=== PATIENT | male | born 1975 | race Two or more races ===

== ENCOUNTER 2018-02-06 10:56 | Emergency (ER) | payer SELFPAY | END 2018-02-06 13:03 | disposition left against medical advice (07) | LOC: ED 12:51 | DX: R06.00 Dyspnea, unspecified (principal) ==

== ENCOUNTER 2018-02-16 18:38 | Emergency (ER) | payer SELFPAY ==
[~2018-02-16] VITALS: Ht 185.4 cm; Wt 86.0 kg
[2018-02-16 18:49] VITALS: BP 158/82
== END 2018-02-16 19:53 | disposition home or self-care (01) ==
LOC: ED 19:47
DX: F15.10 Other stimulant abuse, uncomplicated (principal); F19.10 Other psychoactive substance abuse, uncomplicated; F17.200 Nicotine dependence, unspecified, uncomplicated; R20.2 Paresthesia of skin; Z72.9 Problem related to lifestyle, unspecified; Z91.14 Patient's other noncompliance with medication regimen
CPT/HCPCS: 99283

== ENCOUNTER 2018-02-27 04:27 | Emergency (ER) | payer SELFPAY ==
[~2018-02-27] VITALS: Ht 182.9 cm; Wt 86.7 kg
[2018-02-27 04:29] VITALS: BP 115/82
[2018-02-27] MEDS ORDERED: LIDOCAINE-MPF 1%, 5ML INFIL ONE (05:00)
[2018-02-27] MEDS ORDERED: LIDOCAINE-MPF 1%, 2ML ONE (05:08)
== END 2018-02-27 05:16 | disposition left against medical advice (07) ==
LOC: ED 05:10
DX: L02.414 Cutaneous abscess of left upper limb (principal); F15.10 Other stimulant abuse, uncomplicated; F11.10 Opioid abuse, uncomplicated; F17.200 Nicotine dependence, unspecified, uncomplicated
CPT/HCPCS: 99281

== ENCOUNTER 2019-08-18 05:27 | Inpatient (IN) | payer MEDICAID, MEDICARE ==
[~2019-08-18] VITALS: Ht 188 cm; Wt 106.7 kg
[2019-08-18] MEDS ORDERED: SODIUM CHLORIDE 0.9% 1,000ML IVBOLUS ONE ×3 (05:30→10:30)
[2019-08-18] MEDS ORDERED: SODIUM CHLORIDE FLUSH 10ML SYR IVF ONE (05:30)
--- NOTE | 2019-08-18 05:37 | NUR ---
ALEX ZARAGOZA FROM HOME FOR C/O POSSIBLE OD; PT. DENIES TAKING ANY MEDICAIONS. PER EMS REPORT PT. WENT TO [facility] TO REQUEST HELP AND [employer] PT. IN THE SHOWER WITH ALL CLOTING ON AND CALLED EMS. ALL WET CLOTHING REMOVED ON ARRIVAL. [facility] STATES RA SAT WAS 50% ON RA ON THEIR ARRIVAL. 2MG NARCAN BY EMS EN ROUTE. PT. REPORTS HX OF TBI. PT. A&O X 4. DENIES ANY PAIN OR DISCOMFORT. ON ARRIVAL TO ED PT. SPEAKING NON-STOP WITH NO RESP DISTRESS NOTED. HOWEVER; PT. IS ON 15L NON-REBREATHER. ATTEMPTED TO DECREASE O2 TO [place] IMMEDIATE DECREASE TO 84% WITH 6L NC. NON-REBREATHER REPLACED. EKG DONE ON ARRIVAL. ALL MONITORS PLACED. DR. MENESES WAS IN TO EVAL PT. AND DISCUSS POC. 2ND IV ESTABLISHED.
--- NOTE | 2019-08-18 05:49 | NUR ---
O2 CHANGED TO N[place]. 4L AT THIS TIME. PT. HAS BEEN TALKING IN FULL SENTENCES NON-STOP SINCE ARRIVAL. PT. IS MAINTAINING O2 SAT >90% WITH 4L NC. PT. COOPERATIVE WITH STAFF. ADAMATELY DENIES TAKING ANY DRUGS/MEDS. DENIES ANY SI/HI. PROVIDING UA AT THIS TIME. IVF INFUSING PER ORDER.
[2019-08-18] MEDS ORDERED: NALOXONE 0.4 MG/ML, 1ML ONE ×2 (05:57→09:33)
[2019-08-18 06:04] LABS: BASOPHILS # (AUTO) 0.05 x10^3/uL (0-0.1); BASOPHILS % (AUTO) 1 % (0-1); EOSINOPHILS # (AUTO) 0.16 x10^3/uL (0-0.4); EOSINOPHILS % (AUTO) 2 % (1-7); LYMPHOCYTES # (AUTO) 1.55 x10^3/uL (1-3.4); LYMPHOCYTES % (AUTO) 17 % (22-44); MD NO; MEAN CORPUSCULAR HEMOGLOBIN 30.8 pg (27.5-34.5); MEAN CORPUSCULAR VOLUME 90.6 fL (81-97); MEAN PLATELET VOLUME 8.2 fL (7.4-10.4); MONOCYTES % (AUTO) 5 % (2-9); NEUTROPHILS # (AUTO) 7.01 x10^3/uL (1.8-6.8); NEUTROPHILS % (AUTO) 76 % (42-75); PLATELET COUNT 297 x10^3/uL (130-400); RED BLOOD COUNT 5.21 x10^6/uL (4.38-5.82); RED CELL DISTRIBUTION WIDTH 13.5 % (9.4-14.8)
--- NOTE | 2019-08-18 06:06 | NUR ---
PT. PROVIDED WITH WATER PER REQUEST AND AFTER OK FROM DR. MENESES. PER DR. MENESES IF PT. RESPIRATIONS DROP/MENTAL STATUS CHANGES GIVE NARCAN; NOT AT THIS TIME. PT. CONTINUES TO TALK NON-STOP TO RN. PT. ABLE TO TOLERATE DRINKING WATER WITHOUT DIFFICULTY; NOW REQUESTING FOOD. UPDATED NO FOOD TO BE GIVEN AT THIS TIME. AWAITING X-RAY READ. PT. REMAINS A&O X 4. HAS BEEN UNABLE TO PROVIDE UA THUS FAR; AWARE OF NEED.
[2019-08-18 06:14] LABS: ALANINE AMINOTRANSFERASE 100 U/L (12-78); ALBUMIN 3.9 g/dL (3.4-5.0); ANION GAP 11 mmol/L (5-15); CALCIUM 8.5 mg/dL (8.5-10.1); CHLORIDE 105 mmol/L (98-107); CREATININE 1.11 mg/dL (0.7-1.3)
--- NOTE | 2019-08-18 06:18 | NUR ---
REPORT TO LEXY SHELL. PT. MOVED FROM T4 TO ED 19 AT THIS TIME.
[2019-08-18 06:19] LABS: ALKALINE PHOSPHATASE 81 U/L (45-117); SALICYLATE LEVEL 3.3 mg/dL (2.8-20.0); TOTAL PROTEIN 7.8 g/dL (6.4-8.2)
--- NOTE | 2019-08-18 06:24 | NUR ---
RPT FROM LEXY LOPEZ. ASSUMED CARE OF PT.
[2019-08-18] MEDS ORDERED: NALOXONE 0.4 MG/ML, 1ML IVPush ONE (06:30)
--- NOTE | 2019-08-18 06:36 | NUR ---
PT ATTEMPTED TO PROVIDE UA. UNABLE TO OBTAIN. PO FLUIDS ENCOURAGED.
--- NOTE | 2019-08-18 07:35 | NUR ---
pt standing up trying to void. assisted pt up out of bed. pt steady on his feet. pt still unable to void. pt has urinal at bedside. pt desats without o2 to 82%. o2 placed back in nose. will continue to monitor.
--- NOTE | 2019-08-18 08:14 | NUR ---
PT BEING GIVEN MULTIPLE CUPS OF WATER TO HELP HIM VOID. OFFERED TO CATH PT FOR EASURINE COLLECTION. PT REFUSED. PT CONTINUING TO DRINK WATER.
--- NOTE | 2019-08-18 08:57 | NUR ---
PT CONTINUES TO ADAMENTLY REFUSE CATH FOR URINE. PT CONTINUING TO DRINK WATER, HAS NOT MADE ANY URINE YET.
--- NOTE | 2019-08-18 09:31 | NUR ---
report received from LEXY Mckinley at bedside. pt a&o to person, place and date, disoriented to situation. pt keeps pulling oxygen off and desatting to mid 80% on room air. HR sinus tach 110-120. pt attempting to void with urinal and unable, refusing straight cath. MD Madrigal informed. pt to be admitted. informed that pt is confused, non-complaint, pinpoint pupils. RN instructed to admin 0.4 mg narcan previously ordered. pt placed on high flow oxy mask at 12L/min, spo2 improved to >90% with this transition.
--- NOTE | 2019-08-18 09:41 | NUR ---
pt is responsive to narcan, spo2 improved, RR increased to 15 , speech more clear ,pupils increased from 2mm to 4mm.
--- NOTE | 2019-08-18 09:57 | NUR ---
pt continues to be unable to void, refusing cath. ERP Kaitlin notified. Pt bladder scanned, residual is 47mL. ERP instructed RN to administer one additional liter NS bolus. cxr reviewed by ERP. all monitors in place, pt is sinus tach rate 100-110 with no ectopy. spo2 >95% on 12L oxymask. RR 14-20. pt is now a&ox4, resps even and unlabored. pt instructed to provide clean catch ua when able. urinal at bedside. being monitored closely by this RN.
--- NOTE | 2019-08-18 10:48 | NUR ---
pt able to void, only a few mLs. ERP Kaitlin notified. Sample labeled and walked to lab, lab staff state sample is sufficient to run drug screen. pt is a&o, resps even and unlabored, sinus tach rat 110's on campus monitor with no ectopy. ERP notified pt still requires 12L oxygen via oxymask. ERP ordered troponin, BNP and CTA. ERP ok'd RN to continue to run IVF rapidly as pt has minimal urine output.
[2019-08-18 10:52] LABS: TROPONIN I < 0.015 ng/mL (0.000-0.045)
--- NOTE | 2019-08-18 11:04 | NUR ---
REPORT GIVEN TO ELIF AUSTIN. PT AWAITING CTA.
[2019-08-18 11:10] LABS: AMPHETAMINE SCREEN, URINE Positive (Negative); BARBITURATE SCREEN, URINE Negative (Negative); BENZODIAZEPINE SCREEN, URINE Negative (Negative); CANNABINOID SCREEN, URINE Negative (Negative); COCAINE SCREEN, URINE Negative (Negative); METHADONE SCREEN, URINE Negative (Negative); OPIATE SCREEN, URINE Positive (Negative)
--- NOTE | 2019-08-18 11:21 | NUR ---
BREAK RN: PT AWAKE, ASKING FOR "SOMETHING TO DRINK" DOA RESULTED +OPIATES AND AMPHETAMINES. PT DENIES DRUG USE. PLAN FOR CTA EXPLAINED TO PATIENT, AND PT INSTRUCTED NOTHING TO DRINK UNTIL CT IS COMPLETED.
--- NOTE | 2019-08-18 12:08 | NUR ---
THIS RN HAS ATTEMPTED TO INSERT PIV IN PREFERRED LOCATION FOR CTA (ONLY ACCESS IS IN HAND AND LOW WRIST AT THIS TIME), UNSUCCESSFUL X 2. EDTA AT BEDSIDE AT THIS TIME TO ATTEMPT. CT AWARE ONLY ACCESS IS HAND/WRIST, CT REQUESTING ACCESS HIGHER IN ARM. ERP GIDEON NOTIFIED. PT A&O, RESPS EVEN AND UNLABORED, SINUS TACH RATE 100'S ON CARIDAC MONITOR, NO ECTOPY. OXYGEN REQ UNCHANGED. PT TO GO TO CT ONCE ADDITIONAL PIV ESTABLISHED.
[2019-08-18] MEDS ORDERED: OMNIPAQUE 350 MG/ML, 100ML BOTTLE ONE (12:50)
--- NOTE | 2019-08-18 12:51 | NUR ---
PIV placed to right EJ by this RN with MD Madrigal's ok, MD candelario'd use for CTA. Pt to CT with this RN and tech, now back in room. Pt tolerated well. pt a&o, resps even and unlabored. all monitors in place. VSS. awaiting CTA result and dispo.
--- NOTE | 2019-08-18 13:20 | NUR ---
CTA results reviewed by SHREYAS Madrigal, pt to have blood cx x 2 then abx. pt is 86% when trialed on room air, erp notified. oxygen titrated to 4L/min, pt tolerating well.
[2019-08-18] MEDS ORDERED: CEFTRIAXONE PMX 1GM/50ML 50 ML IVPB ONE (13:30)
[2019-08-18] MEDS ORDERED: SODIUM CHLORIDE FLUSH 10ML SYR IVF PRN (13:30)
[2019-08-18] MEDS ORDERED: AZITHROMYCIN 500 MG in SODIUM CHLORIDE 0.9% 250 ML IVPB ONE (13:30)
[2019-08-18] MEDS ORDERED: CEFTRIAXONE PMX 1GM/50ML 50 ML ONE (13:43)
--- NOTE | 2019-08-18 13:49 | NUR ---
PT A&OX4, RESPS EVEN AND UNLABORED, SINS TACH RATE 110'S ON CARDROOM PLASTIC CARD GRADER WITH NO ECTOPY. PT REPORTS GENERALIZED PAIN LEVEL 7/10. PT A&OX4, RSPS EVEN AND UNLABORED. AWAITING ADMISSION FOR PNA AT THIS TIME.
--- NOTE | 2019-08-18 14:45 | NUR ---
MD Fleming notified pt meeting sepsis criteria but not septic shock, notified pt's HR remains tachy at rate 100-110's. MD notified pt has only had total 2L NS. notified pt has c/o generalized pain. declined to order additional fluids at this time.
--- NOTE | 2019-08-18 15:00 | NUR ---
PT HAS DC'D OWN PIV IN HAND, STATING IT WAS LEAKING BLOOD. PT EDUCATED NOT TO TOUCH LINES. PIV TO LEFT WRIST DC'D WITH TIP INTACT AT PT REQUEST THIS PIV WAS PAINFUL, RIGHT EJ REMAINS IN PLACE, FLUSHES WITH BLOOD RETURN.
--- NOTE | 2019-08-18 15:33 | NUR ---
REPORT GIVEN TO LEXY DUNBAR AT BEDSIDE. PT A&OX4, RESPS EVEN AND UNLABORED. SINUS TACH RATE 100'S ON OPERATING ROOM SPECIALIST WITH NO ECTOPY. [PT INFUSING ZITHROMAX ON IV PUMP. PT OPENS EYES SPONTANEOUSLY. PT AWAITING BED ASSIGNMENT AND TRANSPORT. NADN AT THIS TIME.
--- NOTE | 2019-08-18 15:56 | NUR ---
RECEIVED REPORT FROM LEXY JESUS. PT RESTING IN BED. NADN. MONITORS REMAIN IN PLACE.
--- NOTE | 2019-08-18 16:07 | NUR ---
PT PROVIDED W/ DINNER TRAY.
[2019-08-18] MEDS ORDERED: ONDANSETRON ODT 4 MG PO PRN (17:00)
[2019-08-18] MEDS ORDERED: ACETAMINOPHEN 325 MG TABLET PO PRN (17:00)
[2019-08-18] MEDS ORDERED: DOCUSATE 100 MG CAPSULE PO PRN (17:00)
[2019-08-18] MEDS ORDERED: POLYETHYLENE GLYCOL 17 GM PACKET PO PRN (17:00)
[2019-08-18] MEDS ORDERED: ONDANSETRON 2MG/ML, 2ML IVPush PRN (17:00)
[2019-08-18] MEDS ORDERED: ENOXAPARIN 40 MG/0.4 ML SQ SCH (17:30)
[2019-08-18] MEDS ORDERED: NICOTINE 14MG/24 HR PATCH.TD24 TD SCH (17:30)
--- NOTE | 2019-08-18 17:51 | NUR ---
REPORT GIVEN TO CRIS ALATORRE RN. ALL QUESTIONS ANSWERED. AWAITING PT TRANSPORT.
[2019-08-18 17:59] LABS: RAPID INFLUENZA A Negative (Negative); RAPID INFLUENZA B Negative (Negative)
--- NOTE | 2019-08-18 18:02 | NUR ---
PT RESTING ON GURNEY. NADN. [place].
[2019-08-18 19:09] VITALS: BP 108/76
[2019-08-18 20:00] VITALS: BP 107/74
[2019-08-18] MEDS: NS + 20MEQ KCL 1,000 ML IV SCH (22:42)
[2019-08-19 00:24] VITALS: BP 104/71
[2019-08-19 04:36] LABS: BASOPHILS # (AUTO) 0.03 x10^3/uL (0-0.1); BASOPHILS % (AUTO) 0 % (0-1); EOSINOPHILS % (AUTO) 2 % (1-7); LYMPHOCYTES # (AUTO) 1.97 x10^3/uL (1-3.4); LYMPHOCYTES % (AUTO) 12 % (22-44); MD NO; MEAN CORPUSCULAR HEMOGLOBIN 30.1 pg (27.5-34.5); MEAN CORPUSCULAR HGB CONC 32.9 g/dL (33.2-36.2); MEAN CORPUSCULAR VOLUME 91.4 fL (81-97); MONOCYTES # (AUTO) 0.59 x10^3/uL (0.2-0.8); MONOCYTES % (AUTO) 4 % (2-9); NEUTROPHILS # (AUTO) 13.15 x10^3/uL (1.8-6.8); NEUTROPHILS % (AUTO) 82 % (42-75); PLATELET COUNT 226 x10^3/uL (130-400); RED BLOOD COUNT 4.64 x10^6/uL (4.38-5.82); RED CELL DISTRIBUTION WIDTH 14.1 % (9.4-14.8)
[2019-08-19 04:46] LABS: ALBUMIN 3.1 g/dL (3.4-5.0); ANION GAP 7 mmol/L (5-15); CALCIUM 8.4 mg/dL (8.5-10.1); CHLORIDE 109 mmol/L (98-107)
[2019-08-19 04:50] LABS: ALANINE AMINOTRANSFERASE 91 U/L (12-78); ALKALINE PHOSPHATASE 64 U/L (45-117); CREATININE 0.83 mg/dL (0.7-1.3); TOTAL PROTEIN 6.5 g/dL (6.4-8.2)
[2019-08-19] MEDS: NS + 20MEQ KCL 1,000 ML IV SCH (06:41)
[2019-08-19 08:55] VITALS: BP 123/77
[2019-08-19] MEDS ORDERED: AZIT500T10 PO (12:33)
[2019-08-19] MEDS ORDERED: AMOX1TAB64 PO (12:33)
[2019-08-19] MEDS ORDERED: CEFTRIAXONE PMX 1GM/50ML 50 ML IV SCH (14:00)
[2019-08-19] MEDS ORDERED: AZITHROMYCIN 500 MG TABLET PO SCH (15:00)
== END 2019-08-19 14:22 | disposition home or self-care (01) | DRG 133 ==
LOC: ED 10:33 → EDIP 13:21 → 3N 16:55
PROVIDERS: ADMIT Internal Medicine; ATTEND Internal Medicine
DX: J96.01 Acute respiratory failure with hypoxia (principal); G92 Toxic encephalopathy; J15.9 Unspecified bacterial pneumonia; F11.10 Opioid abuse, uncomplicated; F32.9 Major depressive disorder, single episode, unspecified; F43.10 Post-traumatic stress disorder, unspecified; Z87.820 Personal history of traumatic brain injury; Z87.891 Personal history of nicotine dependence; T40.2X5A Adverse effect of other opioids, initial encounter; Y92.89 Other specified places as the place of occurrence of the external cause; Z88.8 Allergy status to other drugs, medicaments and biological substances
CPT/HCPCS: 36415; 71045; 71275; 80053; 80074; 80307; 83605; 83880; 84145; 84484; 85025; 87040; 87400; 87521; 93005; 96361; 96374; 96375; G0378; J0456; J0696; J2310; J3480; Q9967; J7030; J7050

== ENCOUNTER 2019-11-26 02:17 | Emergency (ER) | payer MEDICAID ==
[~2019-11-26] VITALS: Ht 188 cm; Wt 92.9 kg
[~2019-11-26 02:17] MED LIST: AMOX1TAB64 PO; AZIT500T10 PO
[2019-11-26 02:19] VITALS: BP 133/93
--- NOTE | 2019-11-26 02:42 | NUR ---
patient called in triage. no answer. per screener patient walked out and never came back.
== END 2019-11-26 02:44 | disposition left against medical advice (07) ==
LOC: ED 02:40
DX: R51 Headache (principal); Z53.21 Procedure and treatment not carried out due to patient leaving prior to being seen by health care provider

== ENCOUNTER 2019-12-04 05:01 | Emergency (ER) | payer MEDICAID ==
[~2019-12-04] VITALS: Ht 188 cm; Wt 92.0 kg
[2019-12-04 05:15] VITALS: BP 136/98
--- NOTE | 2019-12-04 05:15 | NUR ---
Patient presents to ER c/o ELLIS all over head and into neck for hours. Denies trauma. Patient states he has had a lot of stress lately. Patient is in NAD. Respirations even and unlabored.
[2019-12-04] MEDS ORDERED: NAPROXEN 500 MG TABLET PO ONE (05:30)
[2019-12-04] MEDS ORDERED: NAPROXEN 500 MG TABLET ONE (05:32)
== END 2019-12-04 05:57 | disposition home or self-care (01) ==
LOC: ED 05:44
DX: J02.8 Acute pharyngitis due to other specified organisms (principal); B97.89 Other viral agents as the cause of diseases classified elsewhere; G44.209 Tension-type headache, unspecified, not intractable; F41.1 Generalized anxiety disorder; F17.200 Nicotine dependence, unspecified, uncomplicated
CPT/HCPCS: 99283

== ENCOUNTER 2019-12-10 09:07 | Emergency (ER) | payer MEDICAID ==
[~2019-12-10] VITALS: Ht 188 cm; Wt 92.6 kg
[2019-12-10 09:08] VITALS: BP 144/92
--- NOTE | 2019-12-10 09:24 | NUR ---
INTERNAL CORROSION SPECIALIST: PT TO ROOM FROM BENNIE HENDERSON
--- NOTE | 2019-12-10 09:25 | NUR ---
karen-ignacio is at the bedside for assessment
[2019-12-10] MEDS ORDERED: LORazepam 1MG TABLET PO ONE (09:30)
--- NOTE | 2019-12-10 09:45 | NUR ---
cxr at the bedside
[2019-12-10] MEDS ORDERED: LORazepam 1MG TABLET ONE (09:46)
--- NOTE | 2019-12-10 10:24 | NUR ---
cheri is at the bedside for dispo.
== END 2019-12-10 10:34 | disposition home or self-care (01) ==
LOC: ED 10:13
DX: F41.1 Generalized anxiety disorder (principal); R07.89 Other chest pain; F15.90 Other stimulant use, unspecified, uncomplicated; R94.31 Abnormal electrocardiogram [ECG] [EKG]
CPT/HCPCS: 71045; 93005; 99283